=== PATIENT | female | born 1990 | race Two or more races ===

== ENCOUNTER 2023-05-23 11:07 | Observation (INO) | payer MEDICAID ==
[2023-05-23] MEDS ORDERED: PREN-96 PO (12:30)
[2023-05-23] MEDS ORDERED: NIF10C PO (12:31)
== END 2023-05-23 12:47 | disposition home or self-care (01) ==
LOC: LDRP 11:07 → UNDOADMOB 11:07 → LDRP 11:28 → UNDODISOB 12:47
PROVIDERS: ADMIT Obstetrics & Gynecology; ATTEND Obstetrics & Gynecology
DX: O62.9 Abnormality of forces of labor, unspecified (principal); O26.893 Other specified pregnancy related conditions, third trimester; R10.30 Lower abdominal pain, unspecified; Z3A.31 31 weeks gestation of pregnancy
CPT/HCPCS: 59025; 81002; 94760; G0378

== ENCOUNTER 2023-05-30 10:10 | Observation (INO) | payer MEDICAID ==
[~2023-05-30] VITALS: Ht 152.4 cm; Wt 62.1 kg
[~2023-05-30 10:10] MED LIST: NIF10C PO; PREN-96 PO
== END 2023-05-30 10:58 | disposition home or self-care (01) ==
LOC: LDRP 10:10
PROVIDERS: ADMIT Obstetrics & Gynecology; ATTEND Obstetrics & Gynecology
DX: O60.03 Preterm labor without delivery, third trimester (principal); Z3A.32 32 weeks gestation of pregnancy
CPT/HCPCS: 59025; 81002; 94760; G0378

== ENCOUNTER 2023-06-13 14:00 | Observation (INO) | payer MEDICAID ==
[~2023-06-13] VITALS: Ht 152.4 cm; Wt 63.5 kg
[2023-06-13] MEDS ORDERED: TERBUTALINE SULFATE 1 MG/ML 1ML VIAL SC SCH (15:00)
[2023-06-13] MEDS ORDERED: NIF10C PO (15:17)
[2023-06-13] MEDS ORDERED: NIFEdipine 10 MG CAP PO ONE (16:00)
== END 2023-06-13 16:28 | disposition home or self-care (01) ==
LOC: LDRP 14:00 → UNDOADMOB 14:00 → LDRP 14:23
PROVIDERS: ADMIT Obstetrics & Gynecology; ATTEND Obstetrics & Gynecology
DX: O60.03 Preterm labor without delivery, third trimester (principal); Z3A.34 34 weeks gestation of pregnancy
CPT/HCPCS: 59025; 81002; 94760; 96372; G0378; J3105

== ENCOUNTER 2023-06-16 07:27 | Observation (INO) | payer MEDICAID | END 2023-06-16 08:33 | disposition home or self-care (01) | LOC: LDRP 07:27 | PROVIDERS: ADMIT Obstetrics & Gynecology; ATTEND Obstetrics & Gynecology | DX: O60.03 Preterm labor without delivery, third trimester (principal); Z3A.34 34 weeks gestation of pregnancy | CPT/HCPCS: 59025; 81002; 94760; G0378 ==

== ENCOUNTER 2023-06-20 11:19 | Observation (INO) | payer MEDICAID | END 2023-06-20 13:06 | disposition home or self-care (01) | LOC: LDRP 12:27 → UNDOADMOB 12:27 → LDRP 13:03 → UNDODISOB 13:06 | PROVIDERS: ADMIT Obstetrics & Gynecology; ATTEND Obstetrics & Gynecology | DX: O60.03 Preterm labor without delivery, third trimester (principal); Z3A.35 35 weeks gestation of pregnancy | CPT/HCPCS: 59025; 81002; G0378 ==

== ENCOUNTER 2023-06-27 10:08 | Observation (INO) | payer MEDICAID | END 2023-06-27 21:45 | disposition home or self-care (01) | LOC: UNDOADMOB 12:33 → LDRP 12:33 → UNDOADMOB 20:30 → LDRP 20:33 → UNDODISOB 21:45 | PROVIDERS: ADMIT Obstetrics & Gynecology; ATTEND Obstetrics & Gynecology | DX: O60.03 Preterm labor without delivery, third trimester (principal); O40.3XX0 Polyhydramnios, third trimester, not applicable or unspecified; Z3A.36 36 weeks gestation of pregnancy | CPT/HCPCS: 59025; 76818; 81002; 94760; G0378 ==

== ENCOUNTER 2023-07-03 10:23 | Observation (INO) | payer MEDICAID | END 2023-07-03 11:48 | disposition home or self-care (01) | LOC: UNDOADMOB 10:23 → LDRP 10:23 | PROVIDERS: ADMIT Obstetrics & Gynecology; ATTEND Obstetrics & Gynecology | DX: O40.3XX0 Polyhydramnios, third trimester, not applicable or unspecified (principal); O62.9 Abnormality of forces of labor, unspecified; Z3A.37 37 weeks gestation of pregnancy | CPT/HCPCS: 59025; 76818; 81002; 94760; G0378 ==

== ENCOUNTER 2023-07-05 08:32 | Observation (INO) | payer MEDICAID | END 2023-07-05 09:56 | disposition home or self-care (01) | LOC: LDRP 08:32 → UNDOADMOB 08:32 → LDRP 08:34 → UNDODISOB 09:56 | PROVIDERS: ADMIT Obstetrics & Gynecology; ATTEND Obstetrics & Gynecology | DX: O40.3XX0 Polyhydramnios, third trimester, not applicable or unspecified (principal); Z3A.37 37 weeks gestation of pregnancy | CPT/HCPCS: 59025; 76818; 81002; 94760; G0378 ==

== ENCOUNTER 2023-07-10 09:33 | Observation (INO) | payer MEDICAID ==
[~2023-07-10 09:33] MED LIST changes: -NIF10C PO
== END 2023-07-10 10:00 | disposition home or self-care (01) ==
LOC: UNDOADMOB 09:33 → LDRP 09:33 → UNDODISOB 10:00
PROVIDERS: ADMIT Obstetrics & Gynecology; ATTEND Obstetrics & Gynecology
DX: O40.3XX0 Polyhydramnios, third trimester, not applicable or unspecified (principal); Z3A.38 38 weeks gestation of pregnancy
CPT/HCPCS: 59025; 76818; 81002; 94760; G0378

== ENCOUNTER 2023-07-10 10:25 | Observation (INO) | payer MEDICAID | END 2023-07-10 11:45 | disposition home or self-care (01) | LOC: LDRP 10:25 → UNDOADMOB 10:25 → LDRP 11:27 → UNDODISOB 11:45 | PROVIDERS: ADMIT Obstetrics & Gynecology; ATTEND Obstetrics & Gynecology | DX: O40.3XX0 Polyhydramnios, third trimester, not applicable or unspecified (principal); O62.9 Abnormality of forces of labor, unspecified; Z3A.38 38 weeks gestation of pregnancy | CPT/HCPCS: 59025; 81002; 94760; G0378 ==

== ENCOUNTER 2023-07-11 18:19 | Observation (INO) | payer MEDICAID ==
[2023-07-11 19:52] LABS: Fern Testing Negative
== END 2023-07-11 20:10 | disposition home or self-care (01) ==
LOC: LDRP 18:19
PROVIDERS: ADMIT Obstetrics & Gynecology; ATTEND Obstetrics & Gynecology
DX: O40.3XX0 Polyhydramnios, third trimester, not applicable or unspecified (principal); O62.9 Abnormality of forces of labor, unspecified; Z3A.38 38 weeks gestation of pregnancy
CPT/HCPCS: 59025; 81002; 84112; 94760; G0378; Q0114

== ENCOUNTER 2023-07-17 10:36 | Observation (INO) | payer MEDICAID | END 2023-07-17 11:50 | disposition home or self-care (01) | LOC: LDRP 10:36 → UNDOADMOB 10:36 → LDRP 10:53 → UNDODISOB 11:50 | PROVIDERS: ADMIT Obstetrics & Gynecology; ATTEND Obstetrics & Gynecology | DX: O40.3XX0 Polyhydramnios, third trimester, not applicable or unspecified (principal); Z3A.39 39 weeks gestation of pregnancy | CPT/HCPCS: 59025; 76818; 81002; 94760; G0378 ==

== ENCOUNTER 2023-07-20 07:51 | Observation (INO) | payer MEDICAID | END 2023-07-20 12:17 | disposition home or self-care (01) | LOC: LDRP 10:25 | PROVIDERS: ADMIT Obstetrics & Gynecology; ATTEND Obstetrics & Gynecology | DX: O40.3XX0 Polyhydramnios, third trimester, not applicable or unspecified (principal); Z3A.39 39 weeks gestation of pregnancy | CPT/HCPCS: 59025; 76818; 81002; 94760; G0378 ==

== ENCOUNTER 2023-07-20 21:22 | Inpatient (IN) | payer MEDICAID ==
[~2023-07-20] VITALS: Ht 152.4 cm; Wt 64.9 kg
[2023-07-20] MEDS ORDERED: PROMETHAZINE HCL 25 MG/ML 1ML IV PRN (21:45)
[2023-07-20] MEDS ORDERED: WITCH HAZEL-GLYCERIN PAD TOP PRN (21:45)
[2023-07-20] MEDS ORDERED: miSOPROStol 50 MCG per PRE-CUT 1/2 TAB PO PRN (21:45)
[2023-07-20] MEDS ORDERED: LIDOCAINE 2%HCL (LOCAL ANESTH.) INJ 20ML MDV IJ PRN (21:45)
[2023-07-20] MEDS ORDERED: PHISODERM TOP SOLN 240ML BTL TOP PRN (21:45)
[2023-07-20] MEDS ORDERED: DERMOPLAST 60ML BOTTLE TOP PRN (21:45)
[2023-07-20 22:30] LABS: Basophils # (auto) 0.1 10 ^3/uL (0-0.2); Basophils % (auto) 0.5 % (0.0-2.0); Eosinophils # (auto) 0.2 10 ^3/uL (0-0.8); Eosinophils % (auto) 1.4 % (0.0-7.0); Hematocrit 37.8 % (36.0-46.0); Hemoglobin 12.6 g/dL (12.2-16.2); Lymphocytes # (auto) 1.9 10 ^3/uL (0.4-5.4); Lymphocytes % (auto) 16.4 % (10.0-50.0); Mean Corpuscular Hemoglobin 29.2 pg (28.0-32.0); Mean Corpuscular Hgb Conc. 33.3 g/dL (32.0-36.0); Mean Corpuscular Volume 87.9 fL (80.0-100.0); Monocytes % (auto) 8.4 % (0.0-12.0); Neutrophils # (auto) 8.3 10 ^3/uL (1.6-8.6); Neutrophils % (auto) 73.3 % (37.0-80.0); Red Cell Distribution Width 15.6 % (11.8-14.3); White Blood Cell 11.4 10^3/uL (4.4-10.8)
[2023-07-20 22:41] LABS: Amphetamine Screen, Urine Neg (NEGATIVE)
[2023-07-20 22:42] LABS: Barbiturate Scree,Urine Neg (NEGATIVE); Benzodiazephine Screen, Urine Neg (NEGATIVE); Cocaine Screen, Urine Neg (NEGATIVE); Opiate Scree,Urine Neg (NEGATIVE); Phencyclidine Screen, Urine Neg (NEGATIVE)
[2023-07-20 22:43] LABS: Cannabinoid Screen, Urine Neg (NEGATIVE)
[2023-07-20 22:45] LABS: Alanine Aminotransferase 15 U/L (7-40); Albumin 3.8 g/dL (3.2-4.8); Alkaline Phosphatase 231 U/L (46-116); Anion Gap 8.2 (5-15); Aspartate Aminotransferase 12 U/L (13-40); BUN/Creatinine Ratio 13.1 (10.0-20.0); Bilirubin, Total 0.3 mg/dL (0.2-1.0); Blood Urea Nitrogen 8 mg/dL (9-23); Calcium 9.4 mg/dL (8.5-10.1); Carbon Dioxide 20.8 mmol/L (20-30); Chloride 108 mmol/L (98-107); Glucose 74 mg/dL (74-106); Potassium 3.8 mmol/L (3.5-5.1); Sodium 137 mmol/L (136-145); Total Protein 6.2 g/dL (5.7-8.2)
[2023-07-20 22:47] LABS: Urine Bacteria FEW /hpf (None Seen); Urine Blood Negative /uL (Negative); Urine Clarity Clear (Clear); Urine Color Colorless (Yellow); Urine Protein, UAD Negative (Negative); Urine Specific Gravity 1.005 (1.001-1.035); Urine Urobilinogen Normal (Negative); Urine WBC 2 /hpf (0 - 5); Urine pH 6.5 (5.0-8.0)
[2023-07-20 22:47] LABS: INR 0.89 (0.9-1.15); Partial Thromboplastin Time 26.6 SEC (24.5-34.5); Prothrombin Time 9.4 sec (9.3-11.8)
[2023-07-20] MEDS: LACTATED RINGER'S 1,000 ML IV SCH (22:54)
[2023-07-21] MEDS ORDERED: TERBUTALINE SULFATE 1 MG/ML 1ML VIAL SC PRN (04:15)
[2023-07-21] MEDS ORDERED: LACT. RINGERS/OXYTOCIN 20UNITS 1,000 ML IV SCH ×2 (04:30→05:30)
[2023-07-21] MEDS ORDERED: LACT. RINGERS/OXYTOCIN 20UNITS 500 ML IV ONE ×2 (05:15→05:45)
[2023-07-21] MEDS ORDERED: fentaNYL CITRATE 100 MCG/2 ML VL IV ONE (05:45)
[2023-07-21] MEDS ORDERED: ROPIVACAINE HCL 200 ML EPI SCH ×2 (05:45→06:30)
[2023-07-21] MEDS ORDERED: LIDOCAINE HCL 2 %PF INJ 10ML AMP IJ ONE (05:45)
[2023-07-21] MEDS ORDERED: NALOXONE HCL 0.4 MG/ML VIAL IV ONE (05:45)
[2023-07-21] MEDS ORDERED: ePHEDrine SULFATE 50 MG/ML AMP IV ONE (05:45)
[2023-07-21] MEDS: LACTATED RINGER'S 1,000 ML IV SCH (08:58)
[2023-07-21] MEDS: IBUPROFEN 600 MG TAB PO PRN ×2 (13:17→21:43)
[2023-07-21 15:02] VITALS: BP 119/74; PULSE 86; RESP 16; TEMP 98; O2SAT 96
[2023-07-21] MEDS: ACETAMINOPHEN 325 MG TAB PO PRN (15:56)
[2023-07-21 18:30] VITALS: BP 109/75; PULSE 69; RESP 18; TEMP 98.1; O2SAT 97
[2023-07-21] MEDS ORDERED: TETANUS-DIPTH-ACEL PERTUSSIS 0.5ML SYR Tdap IM ONE (21:45)
[2023-07-21] MEDS ORDERED: MEASLES, MUMPS & RUBELLA VAC(MMRII) 0.5ML SC ONE (21:45)
[2023-07-21 23:00] VITALS: BP 98/64; PULSE 82; RESP 16; TEMP 98.5; O2SAT 95
[2023-07-22] MEDS: ACETAMINOPHEN 325 MG TAB PO PRN (02:53)
[2023-07-22 02:55] VITALS: BP 100/68; PULSE 80; RESP 18; TEMP 98.6; O2SAT 94
[2023-07-22 07:30] VITALS: BP 112/77; PULSE 75; RESP 18; TEMP 97.9; O2SAT 97
[2023-07-22 11:10] VITALS: BP 111/75; PULSE 91; RESP 16; TEMP 98; O2SAT 97
[2023-07-22 14:00] VITALS: BP 113/77; PULSE 89; RESP 16; TEMP 98.2; O2SAT 97
[2023-07-25 03:07] LABS: RPR Non Reactive (Non Reactive)
[2023-07-25 21:06] LABS: Treponema pallidum Ab (FTA-Ab) Non Reactive (Non Reactive)
== END 2023-07-22 14:28 | disposition home or self-care (01) | DRG 560 ==
LOC: LDRP 21:22
PROVIDERS: ADMIT Obstetrics & Gynecology; ATTEND Obstetrics & Gynecology
PROC: 10E0XZZ Delivery of Products of Conception, External Approach (ICD-10-PCS; principal; 2023-07-21)
PROC: 3E0R3BZ Introduction of Anesthetic Agent into Spinal Canal, Percutaneous Approach (ICD-10-PCS; 2023-07-21)
PROC: 3E0R3BZ Introduction of Anesthetic Agent into Spinal Canal, Percutaneous Approach (ICD-10-PCS; 2023-07-21)
DX: O69.81X0 Labor and delivery complicated by cord around neck, without compression, not applicable or unspecified (principal); Z37.0 Single live birth; O40.3XX0 Polyhydramnios, third trimester, not applicable or unspecified; Z3A.39 39 weeks gestation of pregnancy
CPT/HCPCS: 36415; 59025; 59409; 62282; 80053; 80307; 81001; 81002; 85025; 85610; 85730; 86592; 86850; 86900; 86901; 94760; 96360; 96361; 96366; 96374; G0378; J2590

== ENCOUNTER 2023-11-02 07:23 | Day surgery (SDC) | payer MEDICAID ==
[2023-11-01 15:08] LABS: Basophils # (auto) 0 10 ^3/uL (0-0.2); Basophils % (auto) 0.5 % (0.0-2.0); Eosinophils # (auto) 0.1 10 ^3/uL (0-0.8); Eosinophils % (auto) 1.3 % (0.0-7.0); Hematocrit 43.1 % (36.0-46.0); Hemoglobin 14.1 g/dL (12.2-16.2); Lymphocytes # (auto) 2.6 10 ^3/uL (0.4-5.4); Lymphocytes % (auto) 28.6 % (10.0-50.0); Mean Corpuscular Hemoglobin 28.5 pg (28.0-32.0); Mean Corpuscular Hgb Conc. 32.8 g/dL (32.0-36.0); Mean Corpuscular Volume 87.1 fL (80.0-100.0); Monocytes # (auto) 0.7 10 ^3/uL (0-1.3); Monocytes % (auto) 7.4 % (0.0-12.0); Neutrophils # (auto) 5.6 10 ^3/uL (1.6-8.6); Neutrophils % (auto) 62.2 % (37.0-80.0); Nucleated Red Blood Cells % 0.1 %; Red Blood Cells 4.95 10^6/uL (4.0-5.20); Red Cell Distribution Width 13.9 % (11.8-14.3)
[2023-11-01 15:23] LABS: INR 1.02 (0.9-1.15); Partial Thromboplastin Time 31.1 SEC (24.5-34.5); Prothrombin Time 10.7 sec (9.3-11.8)
[2023-11-01 15:27] LABS: Urine Bacteria NONE SEEN /hpf (None Seen); Urine Blood Negative /uL (Negative); Urine Clarity HAZY (Clear); Urine Color Colorless (Yellow); Urine Protein, UAD TRACE (Negative); Urine Specific Gravity 1.024 (1.001-1.035); Urine Urobilinogen Normal (Negative); Urine WBC 5 /hpf (0 - 5)
[2023-11-01 15:45] LABS: Alanine Aminotransferase 38 U/L (7-40); Alkaline Phosphatase 133 U/L (46-116); Anion Gap 6 (5-15); Aspartate Aminotransferase 30 U/L (13-40); BUN/Creatinine Ratio 14.8 (10.0-20.0); Blood Urea Nitrogen 13 mg/dL (9-23); Carbon Dioxide 29 mmol/L (20-30); Chloride 104 mmol/L (98-107); Glucose 88 mg/dL (74-106); Potassium 4.1 mmol/L (3.5-5.1); Sodium 139 mmol/L (136-145)
[2023-11-01 15:46] LABS: Albumin 4.7 g/dL (3.2-4.8); Bilirubin, Total 0.4 mg/dL (0.2-1.0); Total Protein 7.4 g/dL (5.7-8.2)
[~2023-11-02] VITALS: Ht 152.4 cm; Wt 49.9 kg
[2023-11-02] MEDS ORDERED: ceFAZolin 2 GM/D5W100ml 100 ML IV ONE (07:39)
[2023-11-02] MEDS ORDERED: HYDR-4902 PO (07:46)
[2023-11-02] MEDS ORDERED: ZOFR4T PO (07:46)
[2023-11-02] MEDS ORDERED: BUPIVACAINE HCL 0.25% P/F 10 ML VIAL ONE (08:38)
[2023-11-02] MEDS ORDERED: MIDAZOLAM HCL 2MG/2ML 2ml VIAL (1mg/ml) ONE (08:53)
[2023-11-02] MEDS ORDERED: MEPERIDINE HCL (25 MG/ML) 1ML VIAL ONE (08:53)
[2023-11-02] MEDS ORDERED: fentaNYL CITRATE 100 MCG/2 ML VL ONE (08:53)
[2023-11-02] MEDS ORDERED: LIDOCAINE 2% JELLY 11ml (GLYDO) ONE (09:08)
[2023-11-02] MEDS ORDERED: LACTATED RINGER'S 1,000 ML IV SCH ×2 (09:30→09:45)
[2023-11-02] MEDS ORDERED: ONDANSETRON HCL 4 MG/2 ML VIAL IV PRN ×3 (09:30→10:15)
[2023-11-02] MEDS ORDERED: SUGAMMADEX 200mg/2ml Vial (100MG/ML) IV ONE (09:37)
[2023-11-02] MEDS ORDERED: DexAMETHasone SOD PHOS 10MG/1ML VIAL INJ ONE (09:41)
[2023-11-02] MEDS ORDERED: PROPOFOL 10 MG/ML 20 ML IV ONE (09:41)
[2023-11-02] MEDS ORDERED: ONDANSETRON HCL 4 MG/2 ML VIAL ONE ×2 (09:42→11:25)
[2023-11-02] MEDS ORDERED: KETOROLAC TROMETH 30 MG/ML 1ML VIAL ONE ×2 (09:53→10:33)
[2023-11-02 09:55] VITALS: PULSE 65; RESP 14; TEMP 96.9; O2SAT 100
[2023-11-02] MEDS ORDERED: ePHEDrine SULFATE 50 MG/ML AMP IV PRN (10:15)
[2023-11-02] MEDS ORDERED: MIDAZOLAM HCL 2MG/2ML 2ml VIAL (1mg/ml) IV PRN (10:15)
[2023-11-02] MEDS ORDERED: MORPHINE SULFATE 4 MG/ML SYR/VIAL IV PRN (10:15)
[2023-11-02] MEDS ORDERED: LABETALOL HCL 5 MG/ML 4ML SYRINGE IV PRN (10:15)
[2023-11-02] MEDS ORDERED: HYDROmorphone HCL 2 MG/ML VL/or syr IV PRN (10:15)
[2023-11-02] MEDS ORDERED: KETOROLAC TROMETH 30 MG/ML 1ML VIAL IV ONE (10:15)
[2023-11-02] MEDS ORDERED: HYDROmorphone HCL 2 MG/ML VL/or syr ONE (10:17)
[2023-11-02 12:40] VITALS: BP 115/73; PULSE 54; RESP 12; O2SAT 100
== END 2023-11-02 13:18 | disposition home or self-care (01) ==
LOC: SUR 07:23
PROVIDERS: ATTEND Obstetrics & Gynecology
DX: Z30.2 Encounter for sterilization (principal)
CPT/HCPCS: 36415; 58671; 80053; 81001; 81025; 84702; 85025; 85610; 85730; 86850; 86900; 86901; J1100; J1170; J1885; J2175; J2250; J2405; J2704; J3010; J3490